=== PATIENT | male | born 1990 | race Caucasian/White ===

== ENCOUNTER 2023-12-27 11:08 | Emergency (ER) | payer OTHER ==
[2023-12-27 11:13] VITALS: BP 113/70; PULSE 78; RESP 18; TEMP 97; BMI 35.0
[2023-12-27] MEDS ORDERED: IBUPROFEN 400 MG TABLET (FP) PO ONE (11:37)
[2023-12-27] MEDS ORDERED: ACETAMINOPHEN 500 MG TABLET (FP) ONE (11:37)
[2023-12-27] MEDS: ACETAMINOPHEN 500 MG TABLET (FP) PO ONE (11:39)
[2023-12-27] MEDS: IBUPROFEN 400 MG TABLET (FP) PO ONE (11:39)
== END 2023-12-27 12:36 | disposition home or self-care (01) ==
LOC: JERFT 11:08
DX: M54.6 Pain in thoracic spine (principal); M25.511 Pain in right shoulder; M25.571 Pain in right ankle and joints of right foot; R51.9 Headache, unspecified; M54.2 Cervicalgia; S96.911A Strain of unspecified muscle and tendon at ankle and foot level, right foot, initial encounter; S46.011A Strain of muscle(s) and tendon(s) of the rotator cuff of right shoulder, initial encounter; V49.40XA Driver injured in collision with unspecified motor vehicles in traffic accident, initial encounter; Y92.410 Unspecified street and highway as the place of occurrence of the external cause
CPT/HCPCS: 72070-TC-FY; 73030-TC-RT-FY; 73610-TC-RT-FY; 99284-25